=== PATIENT | female | born 1965 | race Caucasian/White ===

== ENCOUNTER → 2020-05-02 10:00 | Outpatient (CLI) | payer OTHER, SELFPAY ==
--- NOTE | ~2020-05-02 | MM_ITS ---
EXAMINATION: MM screening balbir BI w megan HISTORY: Screening TECHNIQUE: Craniocaudal and mediolateral oblique 3-D tomosynthesis images were obtained and synthetic 2-D images were generated. CAD analysis was submitted and interpreted. COMPARISON: 04/16/2019 BREAST PARENCHYMAL COMPOSITION: There are scattered areas of fibroglandular density. FINDINGS: There is a new cluster of calcifications in the mid outer aspect of the left breast, middle third. The right breast is stable without evidence for malignancy. IMPRESSION: 1. New cluster of left breast calcifications. 2. Magnification views are recommended. BI-RADS Category 0: Incomplete: Needs additional imaging evaluation. Reviewed, dictated and finalized at location A. [employer] COACH
== END ==
PROVIDERS: PCP Internal Medicine; Visit Provider Obstetrics & Gynecology Gynecology
DX: Z12.31 Encounter for screening mammogram for malignant neoplasm of breast (principal); R92.8 Other abnormal and inconclusive findings on diagnostic imaging of breast
CPT/HCPCS: 77063; 77067

== ENCOUNTER 2020-05-24 09:11 | Outpatient (CLI) | payer OTHER, SELFPAY ==
--- NOTE | ~2020-05-24 | MM_ITS ---
EXAMINATION: MM diagnostic mammo unilat LT HISTORY: New cluster of microcalcifications reported in left breast on 05/02/2020 screening mammogram TECHNIQUE: Additional ML view of the left breast. Magnification views of left breast. Rolled medial a nd rolled lateral craniocaudal views of left breast. CAD analysis was submitted and interpreted. COMPARISON: 05/02/2020 bilateral digital screening mammogram 04/16/2019 bilateral digital screening mammogram FINDINGS: Benign cluster grouped microcalcifications is noted in the outer mid left breast at approxi mately 3:00 position. This may be a partially calcified benign fibroadenoma. IMPRESSION: 1. No mammographic evidence of malignancy 2. Routine annual mammographic screening is recommended. BI-RADS Category 2: Benign finding(s). Reviewed, dictated and finalized at location A. ECTION WORKER
== END 2020-05-24 09:12 ==
PROVIDERS: PCP Internal Medicine; Visit Provider Obstetrics & Gynecology Gynecology
DX: R92.8 Other abnormal and inconclusive findings on diagnostic imaging of breast (principal)
CPT/HCPCS: 77065

== ENCOUNTER → 2021-05-27 10:01 | Outpatient (CLI) | payer BC, SELFPAY ==
--- NOTE | ~2021-05-27 | DEXA_ITS ---
Bone Density Report Name: CHRISTOPHER LUIS Age: 56 Sex: Female Ethnicity: White Date of : 1965 Indication: postmenopausal; screening for osteoporosis; prior fracture; hysterectomy; Referring Provider: RENETTA REYES Study: Bone densitometry was performed. Exam Date: May 27, 2021 Accession number: [id number] Bone Density: Region BMD T-score Z-score Classification AP Spine (L1, L2, L3) 1.002 -0.1 1.1 Normal Femoral Neck (Left) 0.825 -0.2 1.0 Normal Total Hip (Left) 0.905 -0.3 0.5 Normal Femoral Neck (Right) 0.795 -0.5 0.7 Normal Total Hip (Right) 0.894 -0.4 0.4 Normal Total Hip Mean 0.900 -0.4 0.5 Normal World Health Organization criteria for BMD impression classify patients as: Normal (T-score at or above -1.0), Osteopenia (T-score between -1.0 and -2.5), or Osteoporosis (T-score at or below -2.5). 10-year Fracture Risk: FRAX not reported because: All T-scores for Spine Total, Hip Total, Femoral Neck at or above -1.0 Previous Exams: Region Exam Age BMD T-score BMD Change BMD Change Date g/cm2 vs Baseline vs Previous AP Spine(L1, L2, L3) 05/27/2021 56 1.002 -0.1 0.002 0.002 04/16/2019 53 1.001 -0.2 Total Hip(Left) 05/27/2021 56 0.905 -0.3 0.017 0.017 04/16/2019 53 0.887 -0.4 Total Hip(Right) 05/27/2021 56 0.894 -0.4 0.000 0.000 04/16/2019 53 0.894 -0.4 *Denotes significance at 95% confidence level, LSC for AP Spine = 0.022 g/cm2, LSC for Total Hip = 0.027 g/cm2 Clinical Information Provided by Patient: Has had a low trauma fracture Has the following medical conditions: Hysterectomy Patient maximum height was 64 Menopause Age: 51 Drinks caffeinated beverages Onset of menses at age 11 Number of children 2 Impression: The patient has normal bone mass. The patient has risk factors, including: previous fracture. No significant bone loss was observed. Discussion: BONE DENSITY IS ABOVE THE MINIMUM DESIRABLE LEVEL AT ALL SKELETAL SITES TESTED. This patient?s bone mineral density is above the minimum desirable level (T-score -1.0 or better) at all sites measured. The patient should follow a healthful lifestyle (good nutrition with adequate calcium and vitamin D, and appropriate weight-bearing exercise). Follow-Up: Consider repeating this study in 5 years or sooner if there is some new clinical indication. Reported by: KEIRY on 05/27/2021 10:38:00 AM.
--- NOTE | ~2021-05-27 | MM_ITS ---
EXAMINATION: MM screening balbir BI w megan HISTORY: Screening TECHNIQUE: Craniocaudal and mediolateral oblique 3-D tomosynthesis images were obtained and synthetic 2-D images were generated. CAD analysis was submitted and interpreted. COMPARISON: Comparison to multiple prior studies sequentially, with oldest reviewed study dated 03/23. BREAST PARENCHYMAL COMPOSITION: There are scattered areas of fibroglandular density. FINDINGS: There is a cluster of indeterminate calcifications in the upper outer quadrant of the left breast, middle third which have increased in number and density compared with prior studies. The righ t breast is stable without evidence for malignancy. IMPRESSION: 1. Clustered indeterminate left breast calcifications, increased in number and density. 2. Magnification views are recommended. BI-RADS Category 0: Incomplete: Needs additional imaging evaluation. Reviewed, dictated and finalized at location A. E HOP
== END ==
PROVIDERS: PCP Internal Medicine; Visit Provider Obstetrics & Gynecology Gynecology
DX: Z12.31 Encounter for screening mammogram for malignant neoplasm of breast (principal); Z78.0 Asymptomatic menopausal state; R92.8 Other abnormal and inconclusive findings on diagnostic imaging of breast
CPT/HCPCS: 77063; 77067; 77080

== ENCOUNTER → 2021-06-12 07:47 | Outpatient (CLI) | payer BC, SELFPAY ==
--- NOTE | ~2021-06-12 | MM_ITS ---
EXAMINATION: MM diagnostic mammo unilat LT HISTORY: Clustered indeterminate left breast calcifications, increasing in number and density, report ed on May 27, 2021 screening mammogram TECHNIQUE: Additional ML view and magnification ML, MLO and cc views. CAD analysis was submitted and interpreted. COMPARISON: May 27, 2021 screening mammogram FINDINGS: Typical popcorn-like calcifications are noted in the outer mid left breast, benign IMPRESSION: 1. No mammographic evidence of malignancy 2. Routine annual mammographic screening is recommended. BI-RADS Category 2: Benign finding(s). Reviewed, dictated and finalized at location A. AULIC LIFT OPERATOR
== END ==
PROVIDERS: Visit Provider Obstetrics & Gynecology Gynecology
DX: R92.8 Other abnormal and inconclusive findings on diagnostic imaging of breast (principal)
CPT/HCPCS: 77065

== ENCOUNTER → 2022-06-16 09:57 | Outpatient (CLI) | payer BC, SELFPAY ==
--- NOTE | ~2022-06-16 | MM_ITS ---
EXAMINATION: MM screening balbir BI w megan HISTORY: Screening mammogram TECHNIQUE: Craniocaudal and mediolateral oblique 3-D tomosynthesis images were obtained and synthetic 2-D images were generated. CAD analysis was submitted and interpreted. COMPARISON: June 12, 2021 diagnostic left mammogram May 27, 2021 bilateral screening mammogram May 24, 2020 diagnostic left mammogram May 02, 2020 bilateral screening mammogram 04/16/2019 bilateral screening mammogram BREAST PARENCHYMAL COMPOSITION: There are scattered areas of fibroglandular density. FINDINGS: Occasional bilateral benign calcifications, including several calcified microhematomas and probable benign partially calcified left fibroadenoma. Stable benign right axillary tail lymph nodes. There is no evidence of suspicious mass, calcification, or architectural distortion to suggest malig jb in either breast. There has been no suspicious interval change. IMPRESSION: 1. No mammographic evidence of malignancy. 2. Recommend routine screening mammography in one year. BI-RADS Category 2: Benign finding(s). Reviewed, dictated and finalized at location A. Y CONCIERGE
== END ==
PROVIDERS: PCP Internal Medicine; Visit Provider Obstetrics & Gynecology Gynecology
DX: Z12.31 Encounter for screening mammogram for malignant neoplasm of breast (principal)
CPT/HCPCS: 77063; 77067

== ENCOUNTER 2023-10-01 11:39 | Outpatient (CLI) | payer BC, SELFPAY ==
--- NOTE | ~2023-10-01 | MM_ITS ---
EXAMINATION: MM screening balbir BI w megan HISTORY: Screening TECHNIQUE: Craniocaudal and mediolateral oblique 3-D tomosynthesis images were obtained and synthetic 2-D images were generated. CAD analysis was submitted and interpreted. COMPARISON: Comparison to multiple prior studies sequentially, with oldest reviewed study dated 03/23. BREAST PARENCHYMAL COMPOSITION: Dense: The breasts are heterogeneously dense, which may obscure small masses FINDINGS: There are clustered indeterminate calcifications developing in number and density in the up per outer quadrant of the left breast, middle third. The right breast is stable without evidence for malignancy. IMPRESSION: 1. Developing clustered indeterminate left breast calcifications. 2. Magnification views are recommended. BI-RADS Category 0: Incomplete: Needs additional imaging evaluation. Reviewed, dictated and finalized at location B.
== END 2023-10-01 11:40 ==
LOC: MICIMG 11:40
PROVIDERS: PCP Internal Medicine; Visit Provider Obstetrics & Gynecology Gynecology
DX: Z12.31 Encounter for screening mammogram for malignant neoplasm of breast (principal); R92.8 Other abnormal and inconclusive findings on diagnostic imaging of breast
CPT/HCPCS: 77063; 77067

== ENCOUNTER 2023-11-07 08:48 | Outpatient (CLI) | payer BC, SELFPAY ==
--- NOTE | ~2023-11-07 | MM_ITS ---
EXAMINATION: MM diagnostic mammo unilat LT HISTORY: Follow-up left breast calcifications TECHNIQUE: Additional 3-D tomosynthesis images of the left breast were performed and synthetic 2-D im ages were generated. CAD analysis was submitted and interpreted. COMPARISON: Comparison to multiple prior studies sequentially, with oldest reviewed study dated 05/02. BREAST PARENCHYMAL COMPOSITION: Not dense: There are scattered areas of fibroglandular density. FINDINGS: There is a developing cluster of pleomorphic calcifications in the lower outer quadrant of the left breast with associated focal asymmetry. There is no skin thickening. IMPRESSION: 1. Developing cluster of pleomorphic calcifications lower outer quadrant of the left breast, middle t hird. There is an associated focal asymmetry. 2. Recommend stereotactic left breast biopsy. BI-RADS category 4, suspicious findings. Reviewed, dictated and finalized at location B. IMPRESSION: 1. Developing cluster of pleomorphic calcifications lower outer quadrant of the left breast, middle third. There is an associated focal asymmetry. 2. Recommend stereotactic left breast biopsy. BI-RADS category 4, suspicious findings.
== END 2023-11-07 08:49 ==
PROVIDERS: PCP Internal Medicine; Visit Provider Obstetrics & Gynecology Gynecology
DX: R92.8 Other abnormal and inconclusive findings on diagnostic imaging of breast (principal)
CPT/HCPCS: 77065

== ENCOUNTER 2024-01-24 15:43 | Outpatient (CLI) | payer BC, SELFPAY ==
--- NOTE | ~2024-01-24 | MR_ITS ---
EXAMINATION: MR brain IAC wo/w con DATE: 01/24/2024 16:38 INDICATION: Dizziness and giddiness. TECHNIQUE: Magnetic resonance imaging (MRI) of the brain, brainstem, and internal auditory canals was performed without and with 17 mL MultiHance intravenous contrast. COMPARISON: Brain MRI 12/19/2015 FINDINGS: There are scattered areas of nonspecific increased T2-weighted signal intensity in the cere bral white matter, which is within normal limits for the patient's age. 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 There is no intracranial hemorrhage, acute infarction, o r abnormal intracranial mass lesion. The ventricles are normal in size. The internal auditory canals, inner ears, tympanic cavities, and mastoid air cells are normal. There are likely changes of ocular lens replacement surgeries. There is a mucous retention cyst in right maxillary sinus. IMPRESSION: 1. 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 Reviewed, dictated and finalized at location A.
== END 2024-01-24 15:44 | disposition home or self-care (01) ==
LOC: MICIMG 15:43
PROVIDERS: PCP Internal Medicine; Visit Provider Internal Medicine
DX: R42 Dizziness and giddiness (principal); Z86.73 Personal history of transient ischemic attack (TIA), and cerebral infarction without residual deficits
CPT/HCPCS: 70553; A9577